=== PATIENT | male | born 1975 | race Caucasian/White ===

== ENCOUNTER 2021-05-14 13:23 | Outpatient (CLI) | payer OTHER, SELFPAY ==
--- NOTE | ~2021-05-14 | CT_ITS ---
. EXAMINATION: CT foot RT wo con DATE: 05/14/2021 13:53 INDICATION: Ganglion at the right foot and ankle TECHNIQUE: Computed tomography (CT) of the right foot was performed without intravenous contrast. Sag ittal and coronal reconstructions were created. The dose-length product was 469.54 mGy-cm. COMPARISON: None FINDINGS: Bone alignment is normal. No fracture. Mild osteoarthritis at the second tarsal metatarsal and first metatarsophalangeal joints. Additional osteoarthritis with mild irregularity to the articular cortex at both sides of the articulation between the talus and the sustentaculum mazin, with a couple adjacen t tiny loose bodies. Small Achilles and plantar calcaneal spurs. Mild fatty atrophy of the intrinsic musculature of the foot. Soft tissues are otherwise unremarkable. No evident joint effusions. No evid ent ganglion cyst. IMPRESSION: 1. 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 2. Small Achilles and plantar calcaneal spurs. Reviewed, dictated and finalized at location A.
== END 2021-05-14 13:24 | disposition home or self-care (01) ==
LOC: ANHIMG 13:25
PROVIDERS: PCP Internal Medicine; Visit Provider Orthopaedic Surgery
DX: M67.471 Ganglion, right ankle and foot (principal); M77.31 Calcaneal spur, right foot; M19.071 Primary osteoarthritis, right ankle and foot
CPT/HCPCS: 73700

== ENCOUNTER 2021-05-20 10:32 | Outpatient (CLI) | payer OTHER, SELFPAY ==
--- NOTE | ~2021-05-20 | CT_ITS ---
EXAMINATION: CT knee LT wo con DATE: 05/20/2021 10:49 INDICATION: Diffuse left knee pain TECHNIQUE: High resolution computed tomography (CT) of the left knee was performed without intravenou s contrast. Additional sagittal and coronal reconstructions were performed. Automated exposure contro l and iterative reconstruction technique were employed. The dose-length product was 423.15 mGy-cm. COMPARISON: None FINDINGS: Bone alignment is normal. No fracture. There is slight widening of the posterior aspect of the joint space at the medial lateral compartments with small amount of lower attenuation fluid discernible bet ween the margins of the posterior horns of the menisci and the adjacent articular cartilage. No erosi ons or osteophytosis. No knee joint effusion. Although the ligaments are not diagnostically evaluated on CT imaging, there appears to be decreased attenuation in the region of the anterior cruciate liga ment suggesting possibility of tear. The posterior cruciate ligament and medial and fibular collatera l ligaments appear unremarkable. IMPRESSION: 1. No left knee joint effusion or osseous abnormality. 2. Slight widening of the posterior aspect of the femorotibial articulations in the medial and latera l compartments and decreased density in the region of the anterior cruciate ligament which raises zeb e suspicion for anterior cruciate ligament tear or mucoid degeneration. Assessment of the integrity o f the ligaments would not be considered diagnostic on CT imaging would correlate with physical exam. Could also consider further evaluation with MRI imaging as clinically indicated. Reviewed, dictated and finalized at location A. IMPRESSION: 1. No left knee joint effusion or osseous abnormality. 2. Slight widening of the posterior aspect of the femorotibial articulations in the medial and lateral compartments and decreased density in the region of the anterior cruciate ligament which raises some suspicion for anterior cruciate l igament tear or mucoid degeneration. Assessment of the integrity of the ligamen ts would not be considered diagnostic on CT imaging would correlate with physic al exam. Could also consider further evaluation with MRI imaging as clinically indicated.
== END 2021-05-20 10:33 | disposition home or self-care (01) ==
LOC: ANHIMG 10:35
PROVIDERS: PCP Internal Medicine; Visit Provider Orthopaedic Surgery
DX: S83.242A Other tear of medial meniscus, current injury, left knee, initial encounter (principal); X58.XXXA Exposure to other specified factors, initial encounter
CPT/HCPCS: 73700

== ENCOUNTER 2021-06-10 01:23 | Day surgery (SDC) | payer OTHER, SELFPAY ==
[2021-06-04 12:28] VITALS: BMI 44.4
--- NOTE | 2021-06-04 12:34 | PC.NURSE ---
Report to the Outpatient Waiting Room, entrance under the green pavilion located off [facility], at time 0630 on date 06/10/21. OR Time: 0830. - You and your visitor will be asked a series of questions to screen for COVID 19 for your protection. - A mask is required within the hospital. One visitor will be allowed to accompany the patient into the hospital. Patients visitor will be instructed to remain with patient at all times or leave the building. We will allow the visitor to come back to the postoperative area when patient is ready. Preoperative COVID Testing Requirements: No COVID Test needed if: (proof is required; if not received patient will have Rapid Test prior to entry) - Patient has received COVID Vaccine at least 14 days prior to procedure date or - Patient has positive COVID test result within last 90 days of surgery date. COVID Test needed if above criteria is not met Patients may have clear liquids (water, carbonated beverages, clear teas, apple juice) until 3 hours prior to surgery with a maximum of 20 ounces. - No food from midnight until time of surgery Take the following medications with a SIP of water the morning of surgery: PAIN PILL (IF NEEDED) Medications to discontinue per physician: N/A Date to take last dose: N/A Please no make-up, nail kyrgyz, hairspray, perfume, deodorant, or body powder the day of surgery. No jewelry (including any body piercings) or valuables the day of surgery, leave them at home. Please take a shower or bath the night before, or the morning of, surgery with an antibacterial soap. Wear comfortable, loose fitting clothing. - Jewelry must be removed prior to entering the operating room. Rings and piercings that are not removed may be cut off. - The hospital will not accept responsibility for valuables. - Please leave all valuables, including medications, at home the day of surgery. If you are going home after surgery, a licensed warehouse delivery driver must drive you home. - NO public transportation without another adult. - We recommend that an adult stay with you for 24 hours following discharge. - We also recommend that you do not drive, make important decision, drink alcoholic beverages, or take any drugs that were not prescribed by your health care provider for at least 24 hours after your discharge time. Follow any additional instructions given to you from your surgeon. Telephone instructions given to FE MOSES and asked if any additional questions and then verbalized understanding. Patient advised to call surgeon office or pre surgery nurse liaison [phone] if any additional questions.
--- NOTE | 2021-06-09 14:31 | P.PNAN_ITS ---
Anes - Initial Pre Proc Eval Procedure: Operation Date: 06/10/21 08:30 Proposed Procedures p Left Knee Arthroscopy, Debride Meniscus, Synovectomy, Chondroplasty, Proceed As Indicated - Gregory Prescott MD Date/Time: 06/09/21 14:31 Surgeon: Gregory Prescott MD Pre Op Diagnosis: lft kn pain, medial menicus tear, condromalacia, Patient Data Age: 46 Gender: M Height: 1.68 m Weight: 124.74 kg Allergies Allergy/AdvReac Type Severity Reaction Status Date / Time ceftriaxone Allergy Severe Anaphylactic Verified 06/22/21 08:40 Shock Home Medications Medication Instructions Recorded Confirmed Type ondansetron 8 mg PO Q8H PRN #10 tablet 06/10/21 06/22/21 Rx sennosides-docusate sodium [Senna 1 tab-cap PO BID PRN #20 tablet 06/10/21 06/22/21 Rx with Docusate Sodium] ibuprofen 800 mg tablet 800 mg PO TID PRN #30 tablet 06/17/21 06/22/21 Rx oxycodone-acetaminophen 7.5 mg-325 1 tablet PO Q4H PRN #30 tablet 06/17/21 06/22/21 Rx mg tablet Patient hx anesthesia problems: none Family hx anesthesia problems: none Results Review: All pre-operative results and documents have been reviewed as part of the pre-operative evaluation. 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 [employer] Gender identity (if verbalized by the patient): Male Spiritual care concerns: No Anes - Eval Final PreProcedure Day of Procedure 06/09/21 14:31 Patient weight: morbidly obese Heart: regular rate and rhythm Lungs: clear to auscultation and normal air movement Airway: Mallampati scale class II Neurological: alert and oriented Last oral intake: >/= 8 hours ASA classification: III Emergent: no Anesthetic plan: proceed Anesthesia type and monitoring: general LMA and standard monitoring Results Review: All pre-operative results and documents have been reviewed as part of the pre-operative evaluation. Informed Consent: The patient's anesthetic plan and its attendant risks and benefits were discussed with the patient/family/POA. Questions were solicited and answers provided to the satisfaction of the patient/family/POA.
[2021-06-10] VITALS (9 sets, daily range): BP systolic 107–140; BP diastolic 66–85; PULSE 45–97; RESP 14–20; TEMP 36.1–37.1; O2SAT 94–100
--- NOTE | 2021-06-10 07:20 | WPDHPUPDATE1 ---
History and Physical Update Update Date/Time: 06/10/21 07:20 History and Physical has been reviewed, including an updated exam of the patient. There are NO changes in the patient's condition. Risks, benefits, and alternatives have been discussed and questions answered. Patient agrees to proceed with procedure.
[2021-06-10] MEDS: ACETAMINOPHEN 500 MG TABLET 1000 MG PO (07:55)
[2021-06-10] MEDS: LACTATED RINGERS 1,000 ML 30 ML IV CONT (08:01)
[2021-06-10] MEDS: KETOROLAC 15 MG/ML VIAL (*BKC) IV PUSH (08:05)
[2021-06-10] MEDS: CLINDAMYCIN 900 MG/D5W 50 ML 900 MG/50 ML PIGGYBACK 50 MG IVPB (08:07)
--- NOTE | 2021-06-10 08:13 | SUR.PREOP ---
pt states no crutch training needed,has crutches and aware how to use.
[2021-06-10] MEDS: BUPIVACAINE HCL 0.25% PF 30 ML VIAL 10 ML INFILTRATE (08:40)
[2021-06-10] MEDS: fentaNYL CITRATE INJ (*CRX) 100 MCG/2 ML VIAL 25 MCG IV PUSH ×4 (09:37→10:19)
--- NOTE | 2021-06-10 09:44 | P.OP_ITS ---
Procedure Note - Detailed Date of Procedure 06/10/21 Pre-op Diagnosis lft kn pain, medial menicus tear, condromalacia, synovitis Post-op Diagnosis Same Procedure Performed Left knee arthroscopy with partial medial meniscectomy, chondroplasty patellofemoral articulation and synovectomy Surgeon Gregory Prescott MD Industrial Hygienist 1st speech and language assistant Anesthesia General Indications 46-year-old gentleman with left knee pain. CT scan shows medial meniscus tear and degenerative changes. Failed conservative treatment with physical therapy, exercises, activity modification and anti-inflammatories. Presents now for operative treatment. Findings Left knee ACL and PCL intact. Acute tear of the anterior horn medial meniscus. Posterior horn intact. Lateral meniscus intact. 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 Grade 2 chondromalacia patella. Grade 1 chondromalacia medial femoral condyle. Lateral compartment intact. Description of Procedure Informed consent given by patient. Operative extremity marked in preoperative holding area. Patient received intravenous antibiotics. Patient brought to operating room and underwent general anesthetic by anesthesia team. Positioned supine on operating room table. Left leg placed into a posterior thigh leg zimmerman. Foot of the table dropped to 90? and right leg padded out of the field. Time-out performed confirming patient, site of surgery and plan. Left knee prepped and draped in usual sterile surgical fashion using ChloraPrep skin solution. Standard arthroscopic portals made by using a 11 blade knife for the anterior lateral portal 1st. Capsule penetrated bluntly. Camera and inflow started. The above operative findings noted. Intra-articular visualization used to position the anterior medial portal using 22 gauge spinal needle. A 11 blade knife used for the skin and blunt penetration of the capsule. 4.7 millimeter arthroscopic shaver introduced and partial medial meniscectomy of the loose and torn anterior portion performed. Edge of meniscus completed with arthroscopic Wand. Arthroscopic Wand used to perform chondroplasty of the patellofemoral articulation and the medial femoral condyle. Shaver reintroduced and a synovectomy performed of the anterior fat pad and extensive synovium as well as medial and lateral plica. Bleeding points coagulated with Wand. Knee inspected, no loose pieces noted. 1 liter of irrigant infused and suction out. Arthroscopic cannulas removed. Skin closed with 4 nylon interrupted suture. Local anesthetic with 0.25% Marcaine. Estimated Blood Loss -5.0 Tourniquet Time 0 Drains No Packing No Pathology None sent Complications None Condition Stable Disposition PACU
[2021-06-10] MEDS: oxyCODONE HCL (*CRX) 5 MG TAB IR PO (10:46)
== END 2021-06-10 11:40 | disposition home or self-care (01) ==
PROVIDERS: PCP Internal Medicine; Visit Provider Orthopaedic Surgery
PROC: (CPT 29870; principal; 2021-06-10 08:30)
DX: M23.312 Other meniscus derangements, anterior horn of medial meniscus, left knee (principal); M65.862 Other synovitis and tenosynovitis, left lower leg; M94.262 Chondromalacia, left knee; E66.01 Morbid (severe) obesity due to excess calories; Z68.41 Body mass index [BMI] 40.0-44.9, adult
CPT/HCPCS: 29881; 29876; A9270; J1100; J1885; J2250; J2405; J2704; J3010; J7120

== ENCOUNTER 2021-10-04 09:00 | Outpatient (RCR) | payer OTHER, SELFPAY ==
--- NOTE | 2021-08-02 10:53 | PTOPEVAL ---
PHYSICAL THERAPY INITIAL EVALUATION. Thank you for referring Alex Segovia III to [facility].? The patient is scheduled to be seen for therapy? 1-2x/week for 4 weeks. Please review, sign, date and return this plan of care KARL. I agree with and certify that the following plan of care is medically necessary. Referring Physician Date Attending Provider: Gregory Prescott MD *PT Outpatient Evaluation Start: 08/02/21 Evaluation Information Diagnosis L menicus repair Onset 06/10/21 Subjective Information Pt states he is doing okay Query Text:As Reported By Patient/ since surgery. He completed Family some therapy at a different facility and was not happy. Pt states he has difficulty with walking down an incline, ambulating stairs, and squatting to pick something up . He has increased pain and weakness throughout the day. Pt reports increased stiffness without frequent movement. Pt states he would like to be able to play golf by the end of the summer. He pain does not increase with increased walking. Previous Treatments For This Problem Completed some therapy at [place] Pain Assessment Left Knee(s) Reported Pain Level 2 Pain Description Aching,Sharp,Soreness,Tender on Palpation Pain Frequency Acute,Intermittent Lowest Pain Intensity 2 Greatest Pain Intensity 7 Pain Aggravating Factors Bending,Palpation,Stair Climbing Lower Extremity Range of Motion General Lower Extremity Range of Motion WFL/Left,WFL/Right Gross Lower Extremity Range of Motion R knee 0-125 Comments L knee 0-120 - painful at end ROM Lower Extremity Muscle Strength Testing Gross Lower Extremity Strength BLE grossly 5/5 L hip abduction 4+/5 Palpation Assessment Palpation inferior aspect of the patella Balance Assessment 5 Time Sit to Stand Time in Seconds 17 5 Time Sit to Stand Comments without the use of UEs Gait Assessment Ambulation Assistive Devices None Gait Pattern Ataxic Gait,Trendelenburg Gait Gait Pattern Observed Decreased Weight Shift - Left, Trunk Lateral Lean - Right Other Gait Observations mild hip ext rot nelida, decreased time spent in stance
--- NOTE | 2021-09-01 09:49 | PTOPEVAL ---
PHYSICAL THERAPY PROGRESS REPORT. Thank you for referring Alex Segovia III to [facility].? The patient is scheduled to be seen for therapy?1x/week for 5 weeks. Please review, sign, date and return this plan of care KARL. I agree with and certify that the following plan of care is medically necessary. Referring Physician Date Attending Provider: Gregory Prescott MD Evaluation Information Diagnosis L meniscus repair Onset 06/10/21 Subjective Information Pt states he feels like his Query Text:As Reported By Patient/ knee is getting better, but Family not still where he wants to be . He reports pain inside and outside of his knee, which he states is unexpected. He also reports he feels more unstable than he feels like he should be. He reports kneeling causes a lot of pain, and some time just casual walking will increase his pain. Pt states he is still really relies of the handrails with usingstairs. Pain Assessment Self Report Pain Assessment Lower Back Reported Pain Level 0 Left Knee(s) Reported Pain Level 3 Greatest Pain Intensity 8 Lower Extremity Range of Motion General Lower Extremity Range of Motion WFL/Left,WFL/Right Gross Lower Extremity Range of Motion R knee 0-125 Comments L knee 0-123 - painful at end ROM Lower Extremity Muscle Strength Testing Gross Lower Extremity Strength BLE grossly 5/5 L hip abduction 4+/5 Muscle Length Testing Garett's Test Hip Muscle Length (R) Mild Tightness,(L) Moderate Tightness Right Prone Knee Flexor Muscle Length ( 120 Left Prone Knee Flexor Muscle Length ( 100 Palpation Assessment Palpation inferior aspect of the patella Balance Assessment 5 Time Sit to Stand Comments Initially: 17s, without the Query Text:Normative Data: If Greater use of UEs Than 15 Seconds, 74% Increase Risk for 09/01/21: 17s, without the use Recurrent Falls of UEs Gait Assessment Gait Pattern Trendelenburg Gait Gait Pattern Observed Trunk Lateral Lean - Right Other Gait Observations mild hip ext rot nelida Stair Climbing Assessment Stair Climbing Assistive Devices None Technique Alternating Steps Stair Climbing Direction Both Up and Down Stair Climbing Comments mild LE ext rot nelida, good control during descent PT Clinical Summary KACY presents to therapy today following 7 visits to treat
--- NOTE | 2021-10-04 09:39 | PTOPEVAL ---
PHYSICAL THERAPY PROGRESS REPORT AND DISCHARGE SUMMARY. Thank you for referring Alex Segovia III to [facility].? The patient is to be discharged from skilled therapy services at this time. Please review, sign, date and return this plan of care KARL. I agree with and certify that the following plan of care is medically necessary. Referring Physician Date Attending Provider: Gregory Prescott MD *PT Outpatient Evaluation Start: 08/02/21 Evaluation Information Diagnosis L menicus repair Onset 06/10/21 Subjective Information Pt states his knee is doing a Query Text:As Reported By Patient/ lot better. Pt states going Family down stairs is still difficultly. He states he worked on a ladder for multiple hours on Monday and woke up pretty sore on Monday. Pt states he is still getting a sharp catching feeling in his knee but this has decreased to once every 3- 4 times he stands up after sitting for a while. Pain Assessment Lower Back Reported Pain Level 0 Left Knee(s) Reported Pain Level 0 Greatest Pain Intensity 5 Pain Aggravating Factors Prolonged Position Lower Extremity Range of Motion General Lower Extremity Range of Motion WFL/Left,WFL/Right Gross Lower Extremity Range of Motion R knee 0-125 Comments L active knee 0-132 - reports stretch at end range Lower Extremity Muscle Strength Testing Gross Lower Extremity Strength BLE grossly 5/5 L hip abduction 4+/5 - functional squat: equal weight distribution with good functional range and excellent control Muscle Length Testing Muscle Length Testing Garett's Test Hip Muscle Length (R) Mild Tightness,(L) Mild Tightness Right Prone Knee Flexor Muscle Length ( 120 Left Prone Knee Flexor Muscle Length ( 120 Palpation Assessment Palpation continues to report tenderness along L distal ITB and L medial knee joint line Balance Assessment 5 Time Sit to Stand 5 Time Sit to Stand Comments Initially: 17s, without the Query Text:Normative Data: If Greater use of UEs Than 15 Seconds, 74% Increase Risk for 09/01/21: 17s, without the use Recurrent Falls of UEs 10/04/21: 15s without the use of UEs Gait Assessment Ambulation Assistive Devices None Gait Pattern
== END 2021-10-11 15:45 | disposition home or self-care (01) ==
LOC: ANHHIPT 09:00
PROVIDERS: PCP Internal Medicine; Visit Provider Orthopaedic Surgery
DX: S83.242D Other tear of medial meniscus, current injury, left knee, subsequent encounter (principal)
CPT/HCPCS: 97110; 97112; 97140; 97161; 97530

== ENCOUNTER 2022-05-15 12:42 | Emergency (ER) | payer OTHER, SELFPAY ==
[2022-05-15 12:57] VITALS: BP 138/72; PULSE 77; RESP 16; TEMP 37.3; O2SAT 96
--- NOTE | 2022-05-15 13:24 | ED.URI ---
HPI - URI/Sore Throat General Chief Complaint: Upper Respiratory Infection Stated Complaint: sinus congestion,lt ear pain,headache Time Seen by Provider: 05/15/22 13:24 Source: patient and RN notes reviewed Mode of arrival: ambulatory Limitations: no limitations History of Present Illness HPI Narrative: 47 y/o male with hx DM presented for c/o sinus congestion and pressure, headache, cough, left ear pressure, fatigue and chills. Onset 3 days. Taking Robitussin for symptoms. Endorses exposure to strep. Denies sob, wheezing, n/v/d. MD elicited complaint: cough Related Data Home Medications Medication Instructions Recorded Confirmed metformin 1,000 mg tablet 1,000 mg PO DIRECTED 05/15/22 05/15/22 triamcinolone acetonide 0.1 % 1 applic topical DIRECTED 05/15/22 05/15/22 topical cream Allergies Allergy/AdvReac Type Severity Reaction Status Date / Time ceftriaxone Allergy Severe Anaphylactic Verified 05/15/22 13:02 Shock Review of Systems Review of Systems: CONSTITUTIONAL: Endorses chills EYES: Denies visual changes, redness, or discharge ENT: Reports rhinorrhea, congestion, sinus pain, otalgia, sore throat CARDIOVASCULAR: Denies chest pain, palpitations, edema RESPIRATORY: Reports cough, post nasal drainage. Denies dyspnea GASTROINTESTINAL: Denies abdominal pain, nausea, vomiting, diarrhea SKIN: Denies rash or itching MUSCULOSKELETAL: Denies myalgia PMFSH Past Medical History Medical History Acute medial meniscus tear of left knee Diabetes Ganglion cyst of right foot Peroneal tendinitis of right lower extremity Surgical History Surgical History History of surgery of head Plate in forehead 1998 per patient questionnaire Family History Family History Other Diabetes mellitus Social History Social History Smoking status: Never smoker Alcohol intake: never Substance use: never Substance use type: does not use Living arrangements: with family Additional living arrangements comments: CHILDREN Occupation/Education: occupation 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 TMs pearly adam with dull light reflex bilaterally; no tragal tenderness. Oropharynx erythematous without lesions or exudate, no drooling, no hoarseness, no trismus, uvula midline. No tripod positioning, muffled voice, soft palate or pharyngeal wall bulging NECK: Supple. No lymphadenopathy CHEST: Clear to auscultation, breath sounds equal. No wheezing, rhonchi, rales, or stridor. No respiratory distress, speaks in full sentences. HEART: Regular rate and rhythm. No murmur heard. SKIN: Warm, dry, no rash. NEURO: Alert and oriented x3. PSYCH: Normal mood and affect Course Course Emergency Course: Patient is aware of diagnosis, understands and agrees to treatment plan. Anticipatory guidance given. Patient agrees to follow-up as directed and is aware of reasons to seek care at the emergency department. Portions of this record may have been created with voice recognition software Level of Care: Express Care Visit Vital Signs Vital signs: Vital Signs Temperature 99.1 F 05/15/22 12:57 Pulse Rate 77 05/15/22 12:57 Respiratory Rate 16 05/15/22 12:57 Blood Pressure 138/72 05/15/22 12:57 Pulse Oximetry 96 05/15/22 12:57 Temperature 99.1 F 05/15/22 12:57 Pulse Rate 77 05/15/22 12:57 Respiratory Rate 16 05/15/22 12:57 Blood Pressure 138/72 05/15/22 12:57 Pulse Oximetry 96 05/15/22 12:57 reviewed MDM - URI/Sore Throat MDM Narrative Medic
== END 2022-05-15 13:39 | disposition home or self-care (01) ==
PROVIDERS: Emergency Provider Nurse Practitioner Family
DX: B34.9 Viral infection, unspecified (principal); E11.9 Type 2 diabetes mellitus without complications; Z79.84 Long term (current) use of oral hypoglycemic drugs
CPT/HCPCS: 87081; 87880; 99213; G0463